=== PATIENT | male | born 1990 | race Two or more races ===

== ENCOUNTER 2019-08-21 22:56 | Emergency (ER) | payer SELFPAY ==
[2019-08-21] MEDS ORDERED: DIPH/PERTUSS(ACELL)/TETANUS VAC/PF 0.5 ML SYR (>=10YO) IM ONE (23:30)
--- NOTE | 2019-08-21 23:31 | ER Document Report ---
ED Medical Screen (RME) - General Chief Complaint: Hand Injury Stated Complaint: HAND INJURY Time Seen by Provider: 08/21/19 23:30 Mode of Arrival: Ambulatory Information source: Patient Notes: Patient states that he was moving a glass door and a large piece of glass fell hitting the top of his left hand. Injury occurred about 2 hours prior to arrival. Patient is right-hand dominant. I have greeted and performed a rapid initial assessment of this patient. A comprehensive ED assessment and evaluation of the patient, analysis of test results and completion of the medical decision making process will be conducted by additional ED providers. Physical Exam - General General appearance: Appears well, Alert Notes: Patient with laceration to dorsal aspect of left hand, left hand swollen, no active bleeding
--- NOTE | 2019-08-22 00:19 | RADIOLOGY REPORT (SQ) ---
EXAM: X-ray hand three views, left CLINICAL DATA: Glass fell on hand, rule out foreign body TECHNICAL DATA: Three x-ray views of the left hand were performed on 08/21/2019 at 11:55 PM. COMPARISONS: None FINDINGS: There is no evidence of fracture or dislocation. There is no significant arthritis or degenerative change. No focal lytic or sclerotic bone lesions are seen. Bone mineralization is normal. There is bandage material along the dorsal aspect of the left hand. No definite radiopaque foreign bodies are identified. IMPRESSION: 1. No evidence of acute osseous injury involving the left hand. 2. There is bandage material along the dorsal aspect of the left hand. No definite radiopaque foreign bodies are identified.
[2019-08-22 02:24] VITALS: BP 112/75
== END 2019-08-22 07:10 | disposition left against medical advice (07) ==
LOC: ER 22:56
DX: S61.412A Laceration without foreign body of left hand, initial encounter (principal); W25.XXXA Contact with sharp glass, initial encounter; Y99.0 Civilian activity done for income or pay; Z53.20 Procedure and treatment not carried out because of patient's decision for unspecified reasons
CPT/HCPCS: 99281